=== PATIENT | female | born 1950 | race Caucasian/White ===

== ENCOUNTER 2022-09-24 13:48 | Outpatient (CLI) | payer MEDICARE, SELFPAY ==
--- NOTE | 2022-09-24 13:56 | MM_ITS ---
WS: [id number] BILATERAL 3D TOMOSYNTHESIS DIGITAL SCREENING MAMMOGRAPHY WITH CAD CLINICAL INFORMATION: SCREENING HISTORY: Screening mammogram. No current complaints. COMPARISON: 2018 TECHNIQUE: Bilateral CC and MLO views. FINDINGS: Scattered fibroglandular densities bilaterally. No suspicious focal mass, asymmetry, calcifications, or architectural distortion. No evidence of malignancy. Incidental punctate calcifications. Vascular calcifications. MM/[place] [id number] IMPRESSION: BI-RADS: 2-Benign FOLLOW UP: 1 Year Follow-up Recommend return to annual screening mammography.
== END 2022-09-24 13:49 | disposition home or self-care (01) ==
PROVIDERS: PCP Nurse Practitioner Family; Visit Provider Nurse Practitioner Family
DX: Z12.31 Encounter for screening mammogram for malignant neoplasm of breast (principal)
CPT/HCPCS: 77063; 77067

== ENCOUNTER 2023-08-09 21:33 | Emergency (ER) | payer MEDICARE, SELFPAY ==
--- NOTE | 2023-08-09 21:36 | ED_ITS ---
HPI - Fall 2 General: Chief Complaint: Fall Stated Complaint: fall Time Seen by Provider: 08/09/23 21:35 History of Present Illness: 72-year-old female comes in today for co mplaints of injury to her right ankle, right knee, left knee, and abdomen. Patient reports that [place] when she tripped over a curb causing her to fall forward onto her knees and then onto her abdomen. Patient appears nontoxic. Patient has abrasion to her right knee and her left knee. Review of Systems 2 General: Reports: 10 or more systems reviewed and unremarkable except in HPI and below Physical Exam 2 Const: COMMON NORMALS: alert HENMT: COMMON NORMALS: normocephalic HEAD & SCALP: normocephalic Neck/C-Spine: COMMON NORMALS: full ROM Chest: COMMONS NORMALS: normal palpation of entire chest wall Resp: COMMON NORMALS: normal respiratory effort and clear to auscultation bilaterally AUSCULTATION: clear to auscultation bilaterally Cardio: COMMON NORMALS: regular rate RATE: regular rate HEART SOUNDS: M urmur heart sound present GI: COMMON NORMALS: Soft to palpation (Mild distention) PALPATION: Yes Soft to palpation (Mild distention) and Yes Tenderness to palpation present (GI) (Mid abdominal tenderness) Back/Pelvis: COMMON NORMALS: thoracic and lumbar spine normal to inspection Extremity: RIGHT LOWER EXTREMITY: Yes knee joint and Yes foot & digits Neuro: SENSORIUM/ORIENTATION: Yes alert Skin: NARRATIVE SKIN EXAM: Abrasion to the right knee Course 2 Vital Signs: Vital signs: Vital Signs Temperature 98.8 F 08/09/23 21:54 Pulse Rate 79 08/09/23 21:54 Respiratory Rate 15 08/09/23 21:54 Blood Pressure 180/56 08/09/23 21:54 Pulse Oximetry 93 08/09/23 21:54 Oxygen Delivery Me thod Room Air 08/09/23 21:54 MDM - Fall Medical Decision Making Patient comes in today for complaints of injury secondary to trip and fall. On exam patient has some abrasions to bilateral knees. Patient has mild swelling to the right ankle. Abdomen soft with some midepigastric tenderness. Differential diagnosis includes but not limited to fracture, sprain, abrasion, contusion, organ injury. Patient has a fracture noted on a foot x-ray of the fifth metatarsal is nondisplaced. CBC was unremarkable. CMP notes mild increase in creatinine at 1.0. X-rays of bilateral knees noted no acute fractures. CT of the abdomen and pelvis noted no acute intra-abdominal process. Patient did have incidental finding for a 3.5 infrarenal abdominal aortic aneurysm. I reviewed the abnormal x-rays with patient with recommendations for treatment and follow-up. Patient was placed in a orthopedic shoe and Brayden wrap with recommendations to follow-up with foot and ankle for fracture. Patient was recommended to follow-up with primary care regarding that aortic aneurysm need for further evaluation and treatment. Patient stated understanding agreed to plan. Lab Data 08/09/23 22:25 08/09/23 22:25 Radiology Impressions Abdomen/Pelvis CT 08/09/23 21:42 IMPRESSION: 1. No acute intra-abdominal or pelvic process. 2. 3.5 cm infrarenal abdominal aortic aneurysm. 3. Other nonemergent findings above. COMMENTS: Consistent with the [employer]'s Incidental Findings Committee white paper (J Am Michael Radiol 2018): Any incidental renal lesion less than 1 cm or classified as too small to characterize, or any incidental cystic renal lesion characterized as simple-appearing, is likely benign. No follow-up imaging is recommended for these lesions per consensus recommendations based on imaging criteria. Ankle X-Ray 08/09/23 21:42 IMPRESSION: 1. No definitive evidence of acute fracture or dislocation. 2. Linear lucency traversing the mid to distal 5th metatarsal, possibly reflecting a vascular channel. Correlate with physical exam and consider dedicated right foot series if clinically indicated. Knee X-Ray 08/09/23 21:42 IMPRESSION: No evidence of acute fracture or dislocation. Laboratory Results WBC 11.69 10^3/uL (3.29-11.43) H 08/09/23 22:25 RBC 4.59 10^6/uL (3.85-5.65) 08/09/23 22:25 Hgb 14.40 g/dL (11.27-16.99) 08/09/23 22:25 Hct 43.2 % (36-47) 08/09/23 22:25 MCV 94.1 fl (85-98) 08/09/23 22:25 MCH 31.4 pg (27-33) 08/09/23 22: MCHC 33.3 g/dL (30-55) 08/09/23 22: RDW 12.3 % (12.1-15.1) 08/09/23 22: Plt Count 221 10^3/cmm (157-399) 08/09/23 22: MPV 10.8 fL (7.4-10.4) H 08/09/23 22:25 Neut % (Auto) 73.7 % 08/09/23 22: Lymph % (Auto) 17.4 % 08/09/23 22: [place] % (Auto) 6.6 % 08/09/23 22: Eos % (Auto) 1.1 % 08/09/23 22: Baso % (Auto) 0.9 % 08/09/23: Neut # (Auto) 8.62 10^3/uL (1.8-7.7) H 08/09/23: Lymph # (Auto) 2.0 10^3/uL (0.8-4.8) 08/09/23 22: [place] # (Auto) 0.8 10^3/uL (0.2-0.9) 08/09/23 22: Eos # (Auto) 0.1 10^3/uL (0.0-0.8) 08/09/23 22: Baso # (Auto) 0.1 10^3/uL (0.0-0.1) 08/09/23: Nucleated RBC % (auto) 0 % 08/09/23 22: Nucleated RBCs # 0.0 /100WBC 08/09/23 22: Sodium 140 mmol/L (136-145) 08/09/23 22: Potassium 4.6 mmol/L (3.5-5.1) 08/09/23 22: Chloride 106 mmol/L (98-107) 08/09/23 22: Carbon Dioxide 23 mmol/L (22-29) 08/09/23 22: Anion Gap 15.6 (5-19) 08/09/23 22:25 BUN 32 mg/dL (8-23) H 08/09/23 22:25 Creatinine 1.0 mg/dL (0.5-0.9) H 08/09/23 22:25 GFR Calculation Not Reportable 08/09/23 22:25 Glucose 215 mg/dL (65-115) H 08/09/23 22:25 Calculated Osmolality 303 mOsm/kg (285-295) H 08/09/23 22:25 Calcium 9.1 mg/dL (8.5-10.5) 08/09/23 22:25 Total Bilirubin 0.2 mg/dL (0.15-1.2) 08/09/23 22:25 AST 15 U/L (0-32) 08/09/23 22: ALT 16 U/L (0-33) 08/09/23 22: Alkaline Phosphatase 76 U/L (35-105) 08/09/23 22: Total Protein 6.9 g/dL (6.6-8.7) 08/09/23 22: Albumin 3.9 g/dL (3.5-5.2) 08/09/23 22: Globulin 3.0 g/dL (1.3-4.6) 08/09/23 22:25 Urine Color Yellow (Yellow) 08/09/23 23:35 Urine Appearance Clear (CLEAR) 08/09/23 23:35 Urine pH 5 (5-7) 08/09/23 23:35 Ur Specific Pope 1.005 (1.005-1.030) 08/09/23 23:35 Urine Protein Neg (Negative) 08/09/23 23:35 Urine Glucose (UA) 1+ (Normal) H 08/09/23 23:35 Urine Ketones Negative (Negative) 08/09/23 23:35 Urine Blood 3+ (Negative) H 08/09/23 23:35 Urine Nitrate Positive (Negative) H 08/09/23 23:35 Urine Bilirubin Neg (Negative) 08/09/23 23:35 Urine Urobilinogen Neg mg/dL (Negative) 08/09/23 23:35 Ur Leukocyte Esterase Trace (Negative) H 08/09/23 23:35 Urine RBC 0-4 /hpf (0-2) H 08/09/23 23:35 Urine WBC 5-10 /hpf (0-5) H 08/09/23 23:35 Ur Squamous Epith Cells 0-4 /hpf (0-5) H 08/09/23 23:35 Amorphous Sediment Not Reportable 08/09/23 23:35 Urine Bacteria 3+ /hpf (NONE) H 08/09/23 23:35 All radiology interpretation(s) finalized by discharge Discharge Plan Discharge Patient Disposition: Home Clinical Impression: Abrasion, multiple sites Fall from slip, trip, or stumble Qualifiers: Encounter type: initial encounter Qualified Code(s): W01.0XXA - Fall on same level from slipping, tripping and stumbling without subsequent striking against object, initial encounter Contusion of knee, right Qualifiers: Encounter type: initial encounter Qualified Code(s): S80.01XA - Contusion of right knee, initial encounter Fracture of fifth metatarsal bone Qualifiers: Encounter type: initial encounter Fracture type: closed Fracture alignment: n ondisplaced Laterality: right Qualified Code(s): S92.354A - Nondisplaced fracture of fifth metatarsal bone, right foot, initial encounter for closed fracture Condition: Stable Prescriptions: New bacitracin 500 unit/gram ointment 1 applic topical BID Qty: 28 0RF Rx Instructions: to abrasions until healed hydrocodone-acetaminophen 5-325 mg tablet 1 tab PO Q8H PRN (Reason: pain) Qty: 7 0RF Discharge Orders: Discharge ED (Routine); Ordered 08/09/23 Ordered By: Darek Loyd Referrals: May Medina FNP [Primary Care Provider] - Discharge Diet: Usual diet Discharge Activity: Increase activity as tolerated Patient Instructions: Foot Fracture in Adults (ED) Activity Restrictions/Additional Instructions: Follow-up with primary care in 3 to 5 days for recheck. Use acetaminophen ibuprofen for pain. Use ice packs for further pain relief. Elevate foot knee is much as possible. Case management will contact you regarding follow-up appointment with ankle and foot surgeon. We also need to follow-up with your primary care regarding the abnormal CT scan showing a abdominal aortic aneurysm. Coding Level of Care Code ED Manager Facility for [facility]
--- NOTE | 2023-08-09 21:42 | XRR_ITS ---
PROCEDURE INFORMATION: Exam: XR Right Ankle Exam date and time: 08/09/2023 9:51 PM Age: 72 years old Clinical indication: Injury or trauma; Fall; Blunt trauma; Right; Patient HX: Patient tripped and fell onto concrete parking lot. C/O ankle pain. History of RT ankle fracture. TECHNIQUE: Imaging protocol: Radiologic exam of the right ankle. Views: 3 or more views. COMPARISON: CR (LOW EXM, ) 08/09/2023 9:46 PM FINDINGS: Bones/joints: Osseous demineralization. No evidence of acute fracture or dislocation. Normal alignment. Mild degenerative change of the right ankle. Linear lucency traversing the mid to distal 5th metatarsal, possibly reflecting a vascular channel. Soft tissues: Normal. XR/XR ankle RT min 3V* [id number] IMPRESSION: 1. No definitive evidence of acute fracture or dislocation. 2. Linear lucency traversing the mid to distal 5th metatarsal, possibly reflecting a vascular channel. Correlate with physical exam and consider dedicated right foot series if clinically indicated.
--- NOTE | 2023-08-09 21:42 | CTR_ITS ---
PROCEDURE INFORMATION: Exam: CT Abdomen And Pelvis With Contrast Exam date and time: 08/09/2023 10:28 PM Age: 72 years old Clinical indication: Injury or trauma; Fall; Blunt; Prior surgery; Surgery date: 6+ months; Surgery type: Tubal; Patient HX: Patient tripped and fell faceforward onto concrete parking lot. C/O anterior abd wall pain to epigastric region. ; Additional info: Fall, abd pain TECHNIQUE: Imaging protocol: Computed tomography of the abdomen and pelvis with contrast. Radiation optimization: All CT scans at this facility use at least one of these dose optimization techniques: automated exposure control; mA and/or kV adjustment per patient size (includes targeted exams where dose is matched to clinical indication); or iterative reconstruction. Contrast material: OMNI 350; Contrast volume: 100 ml; Contrast route: INTRAVENOUS (IV); COMPARISON: No relevant prior studies available. RADIATION DOSE METRICS: Total DLP (mGy-cm): 996.23 FINDINGS: Lungs: Dependent changes in the posterior lower lobes. Heart: Heart size is within normal limits. There is no pericardial effusion or pericardial thickening. Liver: The liver is normal. No hepatic masses are identified. Gallbladder and bile ducts: Small gallstones are identified within the gallbladder. There is no gallbladder wall thickening. No biliary dilatation. Pancreas: The pancreas is normal. Spleen: The spleen is normal. Adrenal glands: The adrenal glands are normal. Kidneys and ureters: There is normal enhancement of the kidneys. No renal calcifications are identified. There is no hydronephrosis. There are bilateral subcentimeter renal low-density lesions which are too small for accurate characterization, likely representing simple cysts. Stomach and bowel: Mild colonic diverticulosis without diverticulitis. There is no large or small bowel obstruction. There is no evidence of bowel wall thickening. Appendix: A normal appendix is identified. Intraperitoneal space: No inflammatory changes are identified. There is no free fluid or fluid collection seen. There is no pneumoperitoneum. Vasculature: Atherosclerotic calcifications of the aorta are present. 3.5 cm infrarenal abdominal aortic aneurysm. Lymph nodes: Unremarkable. No enlarged lymph nodes. Urinary bladder: The bladder is unremarkable. Reproductive: The uterus is present. Bones/joints: No acute osseous abnormalities are seen. Soft tissues: Small periumbilical hernia containing only fat. Small bilateral inguinal hernias containing only fat are present. The soft tissues are otherwise within normal limits. CT/CT abdomen pelvis w con* [id number] IMPRESSION: 1. No acute intra-abdominal or pelvic process. 2. 3.5 cm infrarenal abdominal aortic aneurysm. 3. Other nonemergent findings above. COMMENTS: Consistent with the [employer]'s Incidental Findings Committee white paper (J Am Michael Radiol 2018): Any incidental renal lesion less than 1 cm or classified as too small to characterize, or any incidental cystic renal lesion characterized as simple-appearing, is likely benign. No follow-up imaging is recommended for these lesions per consensus recommendations based on imaging criteria.
--- NOTE | 2023-08-09 21:42 | XRR_ITS ---
PROCEDURE INFORMATION: Exam: XR Right Knee Exam date and time: 08/09/2023 9:46 PM Age: 72 years old Clinical indication: Injury or trauma; Fall; Blunt trauma; Right; Patient HX: Patient tripped and fell onto concrete parking lot. C/O RT knee pain. Laceration to anterior aspect. TECHNIQUE: Imaging protocol: Radiologic exam of the right knee. Views: 3 views. COMPARISON: No relevant prior studies available. FINDINGS: Bones/joints: The bones are mildly demineralized. Alignment is intact. No acute fracture. Calcification adjacent to the lateral distal femur consistent with prior ligamentous injury. No joint effusion. Mild tricompartmental degenerative change. Soft tissues: Soft tissue swelling . Tiny subcutaneous hyperdensities and possible subcutaneous gas in the anterior proximal perea. XR/XR knee RT 3V* [id number] IMPRESSION: 1. No acute fracture. 2. Soft tissue swelling . Tiny subcutaneous hyperdensities and possible subcutaneous gas in the anterior proximal perea. Correlate with physical exam.
--- NOTE | 2023-08-09 21:42 | XRR_ITS ---
PROCEDURE INFORMATION: Exam: XR Left Knee Exam date and time: 08/09/2023 9:50 PM Age: 72 years old Clinical indication: Injury or trauma; Fall; Blunt trauma; Patient HX: Patient tripped and fell onto concrete parking lot. C/O left knee pain. TECHNIQUE: Imaging protocol: Radiologic exam of the left knee. Views: 3 views. COMPARISON: No relevant prior studies available. FINDINGS: Bones/joints: Mild osseous demineralization. No evidence of acute fracture or dislocation. Moderate tricompartmental degenerative change, worst in the medial joint space with slight varus alignment deformity. No joint effusion. Soft tissues: Normal. XR/XR knee LT 3V* [id number] IMPRESSION: No evidence of acute fracture or dislocation.
[2023-08-09 21:54] VITALS: BP 180/56; PULSE 79; RESP 15; TEMP 37.1; O2SAT 93; BMI 34.3
[2023-08-09] MEDS: iohexol 350 mg/mL 500 mL Btl (per mL) IV (22:28)
[2023-08-09 22:32] LABS: Basophils # 0.1 10^3/uL (0.0-0.1); Basophils % 0.9 %; Eosinophils # 0.1 10^3/uL (0.0-0.8); Eosinophils % 1.1 %; Hematocrit 43.2 % (36-47); Lymphocytes % 17.4 %; Mean Corpuscular HGB Conc 33.3 g/dL (30-55); Mean Corpuscular Hemoglobin 31.4 pg (27-33); Mean Corpuscular Volume 94.1 fl (85-98); Mean Platelet Volume 10.8 fL (7.4-10.4); Monocytes # 0.8 10^3/uL (0.2-0.9); Monocytes % 6.6 %; Neutrophils # 8.62 10^3/uL (1.8-7.7); Neutrophils % 73.7 %; Nucleated Red Blood Cells % 0 %; Platelet Count 221 10^3/cmm (157-399); Red Blood Count 4.59 10^6/uL (3.85-5.65); Red Cell Distribution Width 12.3 % (12.1-15.1); White Blood Count 11.69 10^3/uL (3.29-11.43)
[2023-08-09 22:37] VITALS: BP 180/72; PULSE 79; RESP 17; O2SAT 97
[2023-08-09 22:51] LABS: Alanine Aminotransferase 16 U/L (0-33); Albumin Level 3.9 g/dL (3.5-5.2); Alkaline Phosphatase 76 U/L (35-105); Anion Gap 15.6 (5-19); Aspartate Amino Transferase 15 U/L (0-32); Blood Urea Nitrogen 32 mg/dL (8-23); Calcium 9.1 mg/dL (8.5-10.5); Carbon Dioxide 23 mmol/L (22-29); Chloride 106 mmol/L (98-107); Creatinine Clr Calc Pharmacy 55.4777; Glucose 215 mg/dL (65-115); Osmolality Calculated 303 mOsm/kg (285-295); Potassium 4.6 mmol/L (3.5-5.1); Sodium 140 mmol/L (136-145); Total Bilirubin 0.2 mg/dL (0.15-1.2); Total Protein 6.9 g/dL (6.6-8.7)
[2023-08-09 23:27] VITALS: BP 167/80; PULSE 73; RESP 16; O2SAT 93
--- NOTE | 2023-08-09 23:45 | XRR_ITS ---
PROCEDURE INFORMATION: Exam: XR Right Foot Exam date and time: 08/09/2023 11:47 PM Age: 72 years old Clinical indication: Injury or trauma; Blunt trauma; Foot; Right; Patient HX: Patient tripped falling onto concrete parking lot. Possible 5th metatarsal fracture noted on ankle xray. TECHNIQUE: Imaging protocol: Radiologic exam of the right foot. Views: 3 or more views. COMPARISON: CR (LOW EXM, ) 08/09/2023 9:51 PM FINDINGS: Bones/joints: Mildly displaced distal 5th metatarsal fracture. No other fractures are identified. Alignment is intact. Soft tissues: The soft tissues are within normal limits. XR/XR foot RT min 3V* [id number] IMPRESSION: Mildly displaced distal 5th metatarsal fracture.
[2023-08-09 23:54] LABS: Add Urine Culture? Yes; Add Urine Microscopic? YES; Bacteria Urine 3+ /hpf; Bilirubin Urine Neg (Negative); Blood Urine 3+ (Negative); Glucose Urine UA 1+ (Normal); Ketones Urine Negative (Negative); Leukocyte Esterase Urine Trace (Negative); Nitrate Urine Positive (Negative); Protein Urine Neg (Negative); RBC Urine 0-4 /hpf (0-2); Specific Gravity, Urine 1.005 (1.005-1.030); Squamous Epithelial Cell Urine 0-4 /hpf (0-5); Urine Appearance Clear (CLEAR); Urine Color Yellow (Yellow); Urobilinogen Urine Neg (Negative); pH Urine 5 (5-7)
[2023-08-10 00:45] VITALS: BP 165/78; PULSE 75; RESP 17; O2SAT 95
--- NOTE | 2023-08-11 08:49 | DCPLANNER ---
Message sent to podiatry for follow up on foot and ankle fx
== END 2023-08-10 00:45 | disposition home or self-care (01) ==
PROVIDERS: Emergency Provider Nurse Practitioner Family; PCP Nurse Practitioner Family
DX: S80.01XA Contusion of right knee, initial encounter (principal); S92.354A Nondisplaced fracture of fifth metatarsal bone, right foot, initial encounter for closed fracture; S80.212A Abrasion, left knee, initial encounter; W01.0XXA Fall on same level from slipping, tripping and stumbling without subsequent striking against object, initial encounter
CPT/HCPCS: 73562; 73610; 73630; 74177; 80053; 81001; 85025; 87077; 87086; 87186; 99285; Q9967

== ENCOUNTER → 2024-07-13 12:22 | Outpatient (BNVA) | payer MEDICARE, SELFPAY | PROVIDERS: PCP Nurse Practitioner Family; Visit Provider Internal Medicine Cardiovascular Disease | DX: R07.9 Chest pain, unspecified (principal); I10 Essential (primary) hypertension; I71.40 Abdominal aortic aneurysm, without rupture, unspecified; Z87.891 Personal history of nicotine dependence | CPT/HCPCS: 99214 ==